=== PATIENT | female | born 1960 | race African-American/Black ===

== ENCOUNTER 2024-03-05 15:23 | Emergency (ER) | payer SELFPAY ==
[~2024-03-05] VITALS: Ht 157.5 cm; Wt 63.0 kg
[2024-03-05 15:33] VITALS: TEMP 98.2; O2SAT 100
[2024-03-05 17:30] VITALS: BP 146/79; PULSE 60; RESP 18
[2024-03-05] MEDS: KETOROLAC 60MG/2ML VIAL IM NR (17:30)
[2024-03-05] MEDS: LIDOCAINE 5% PATCH TOP NR (17:30)
[2024-03-05] MEDS ORDERED: LIDO700A15 TP (18:48)
[2024-03-05] MEDS ORDERED: HYDR-4001 MT (18:49)
== END 2024-03-05 19:19 | disposition home or self-care (01) ==
LOC: ER 15:23
DX: S20.212A Contusion of left front wall of thorax, initial encounter (principal)
CPT/HCPCS: 71045; 73562; 93005; 96372; 99284; J1885; Z7610